=== PATIENT | male | born 2000 | race Native Hawaiian/Other Pacific Islander ===

== ENCOUNTER 2018-01-14 16:29 | Outpatient (CLI) | payer OTHER | END 2018-01-14 20:03 | disposition home or self-care (01) | LOC: RAD 16:29 | DX: M25.572 Pain in left ankle and joints of left foot (principal); M25.571 Pain in right ankle and joints of right foot ==

== ENCOUNTER 2018-08-02 15:29 | Outpatient (CLI) | payer OTHER | END 2018-08-02 18:38 | disposition home or self-care (01) | LOC: LAB 15:29 | DX: A02.0 Salmonella enteritis (principal) | CPT/HCPCS: 83630; 87015; 87045; 87324; 87328; 87329; 87449; 87899 ==

== ENCOUNTER 2020-08-04 19:30 | Emergency (ER) | payer OTHER ==
[~2020-08-04] VITALS: Ht 188 cm; Wt 122.5 kg
[2020-08-04 21:18] VITALS: BP 158/86; TEMP 98.3
== END 2020-08-04 21:18 | disposition home or self-care (01) ==
LOC: ED 19:30
DX: S29.012A Strain of muscle and tendon of back wall of thorax, initial encounter (principal); V89.2XXA Person injured in unspecified motor-vehicle accident, traffic, initial encounter; Y92.89 Other specified places as the place of occurrence of the external cause
CPT/HCPCS: 99283

== ENCOUNTER 2023-02-20 11:28 | Outpatient (CLI) | payer BC | END 2023-02-20 18:54 | disposition home or self-care (01) | LOC: RAD 11:28 | PROVIDERS: ATTEND Nurse Practitioner Family | DX: S89.81XA Other specified injuries of right lower leg, initial encounter (principal); Y92.89 Other specified places as the place of occurrence of the external cause ==